=== PATIENT | male | born 1985 | race Caucasian/White ===

== ENCOUNTER 2017-10-12 11:10 | Emergency (ER) | payer MEDICAID, OTHER ==
[2017-10-12 11:17] VITALS: BP 139/86; TEMP 97.2; BMI 36.3
--- NOTE | 2017-10-12 11:38 | ED.PDOC ---
General ED Provider: Dr. LILIA TEJADA-ER Chief Complaint: Tooth Problem Stated Complaint: my tooth hurts Time Seen by Physician: 11:36 Mode of Arrival: Walk-In Information Source: Patient Exam Limitations: No limitations Primary Care Provider: WILMAR ENGLISH Nursing and Triage Documentation Reviewed and Agree: Yes Does patient meet sepsis criteria?: No System Inflammatory Response Syndrome: Not Applicable Sepsis Protocol: For patient's 13 years and over: Temp is 96.8 and below OR 101 and greater Pulse >90 BPM Resp >20/minute Acutely Altered Mental Status Are patient's symptoms suggestive of a new infection, such as: -Pneumonia -Skin, Soft Tissue -Endocarditis -UTI -Bone, Joint Infection -Implantable Device -Acute Abdominal Infection -Wound Infection -Meningitis -Blood Stream Catheter Infection -Unknown EENT Complaint Exam - Dental/Oral Complaint/Exam Mechanism of Injury: No known trauma Onset/Duration: 3 days Symptoms Are: Still present Timing: Constant Initial Severity: Mild Current Severity: Moderate Location: right premolar upper Character: Reports: Dull, Aching, Throbbing Aggravating: Reports: Heat, Cold, Chewing Alleviating: Reports: None Associated Signs and Symptoms: Reports: Swelling Cervical Lymphadenopathy Present: No Facial Swelling Present: No Bleeding Present: No Oropharynx Findings: Absent: Clots, Active bleeding Septal Hematoma: No Foreign Body Present: No Dysphagia Present: No Drooling Present: No Asymmetrical Tonsillar Swelling Present: No Uvula Midline: Yes Nilsa-tonsillar Fluctuence: No Trismus Present: No Palatal Petechiae Present: No Scarlatinaform Rash Present: No Differential Diagnoses: Dental Abcess, Dental Caries Review of Systems - Review Of Systems Constitutional: Reports: No symptoms Eyes: Reports: No symptoms Ears, Nose, Mouth, Throat: Reports: Mouth pain Respiratory: Reports: No symptoms Cardiac: Reports: No symptoms GI: Reports: No symptoms : Reports: No symptoms Musculoskeletal: Reports: No symptoms Skin: Reports: No symptoms Neurological: Reports: No symptoms Endocrine: Reports: No symptoms Hematologic/Lymphatic: Reports: No symptoms All Other Systems: Reviewed and Negative Past Medical History - Past Medical History Previously Healthy: Yes Endocrine: Reports: None Cardiovascular: Reports: None Respiratory: Reports: None Hematological: Reports: None Gastrointestinal: Reports: None Genitourinary: Reports: None Neuro/Psych: Reports: None Musculoskeletal: Reports: None Cancer: Reports: None - Surgical History General Surgical History: Reports: None - Family History Family History: Reports: None - Social History Smoking Status: Never smoker Hx Substance Use: No Alcohol Screening: Occasionally - Immunizations Tetanus Shot up to Date: No Physical Exam - Physical Exam Appearance: Well-appearing, No pain distress, Well-nourished Pain Distress: Mild Eyes: MILENA, EOMI, Conjunctiva clear ENT: Ears normal, Nose normal, Oropharynx normal (noted tenderness to right upper premolar) Neck: Supple Respiratory: Airway patent, Breath sounds clear, Breath sounds equal, Respirations nonlabored Cardiovascular: RRR, Pulses normal, No rub, No murmur GI/: Soft, Nontender, No masses, Bowel sounds normal, No Organomegaly Musculoskeletal: Normal strength, ROM intact, No edema, No calf tenderness Skin: Warm, Dry, Normal color Neurological: Sensation intact, Motor intact, Reflexes intact, Cranial nerves intact, Alert, Oriented Psychiatric: Affect appropriate, Mood appropriate Critical Care Note - Critical Care Note Total Time (mins): 0 Course - Course Vital Signs: Temp Pulse Resp BP Pulse Ox 10/12/17 11:12 97.2 F L 81 16 139/86 98 Departure - Departure Time of Disposition: 11:38 Disposition: HOME SELF-CARE Discharge Problem: Toothache Instructions: Toothache (ED) Condition: Good Pt referred to PMD for follow-up: No IPMP verified?: No Additional Instructions: clindamycin liquid 150mg tid x 7 days--liquid lortab 5mg q 4hrs prn pain 50cc nr --f/u with dentist ace Allergies/Adverse Reactions: Allergies chlorpheniramine [From Triaminic Cold & Cough] Adverse Reaction (Verified 11:20) dextromethorphan [From Triaminic Cold & Cough] Adverse Reaction (Verified 11:20) Penicillins Adverse Reaction (Verified 10/12/17 11:20) pseudoephedrine [From Triaminic Cold & Cough] Adverse Reaction (Verified 11:20) Home Medications: Ambulatory Orders 1 [No Reported Medications] 10/12/17 Disposition Discussed With: Patient, Family
== END 2017-10-12 11:59 | disposition home or self-care (01) ==
LOC: ED 11:10
DX: K08.89 Other specified disorders of teeth and supporting structures (principal)
CPT/HCPCS: 99282

== ENCOUNTER 2017-10-20 13:04 | Emergency (ER) ==
[2017-10-20 13:05] VITALS: BMI 36.3
[2017-10-20 13:11] VITALS: BP 111/84; TEMP 98.5
--- NOTE | 2017-10-20 13:27 | ED.PDOC ---
General ED Provider: Dr. KUSUM RAMIREZ Chief Complaint: Tooth Problem Stated Complaint: DENTAL PAIN Time Seen by Physician: 13:12 Mode of Arrival: Walk-In Information Source: Patient Exam Limitations: No limitations Primary Care Provider: WILMAR ENGLISH Nursing and Triage Documentation Reviewed and Agree: Yes Does patient meet sepsis criteria?: No If yes, has appropriate treatment been initiated?: No System Inflammatory Response Syndrome: Not Applicable Sepsis Protocol: For patient's 13 years and over: Temp is 96.8 and below OR 101 and greater Pulse >90 BPM Resp >20/minute Acutely Altered Mental Status Are patient's symptoms suggestive of a new infection, such as: -Pneumonia -Skin, Soft Tissue -Endocarditis -UTI -Bone, Joint Infection -Implantable Device -Acute Abdominal Infection -Wound Infection -Meningitis -Blood Stream Catheter Infection -Unknown EENT Complaint Exam - Dental/Oral Complaint/Exam Mechanism of Injury: No known trauma Onset/Duration: 2 DAYS Symptoms Are: Still present Timing: Constant Initial Severity: Moderate Current Severity: Moderate Character: Reports: Aching Aggravating: Reports: Cold, Chewing Alleviating: Reports: Cold Associated Signs and Symptoms: Denies: Swelling, Discharge, Fever, Foul odor, Foul taste in mouth Related History: Reports: Similar episode Cardiac Risk Factors: Reports: None Dental/Oral Surgical History: Reports: None Tooth Findings: Present: Gross decay, Gross caries Cervical Lymphadenopathy Present: No Facial Swelling Present: No Bleeding Present: No Oropharynx Findings: Absent: Clots, Active bleeding Septal Hematoma: No Foreign Body Present: No Dysphagia Present: No Drooling Present: No Asymmetrical Tonsillar Swelling Present: No Uvula Midline: Yes Nilsa-tonsillar Fluctuence: No Trismus Present: No Palatal Petechiae Present: No Scarlatinaform Rash Present: No Lesions: Absent: Lip, Gums, Tongue, Buccal Mucosa, Pharynx Exanthem: Absent: Lip, Gums, Tongue, Buccal Mucosa, Pharynx Vesicles: Absent: Lip, Gums, Tongue, Buccal Mucosa, Pharynx Differential Diagnoses: Dental Caries Review of Systems - Review Of Systems Constitutional: Reports: No symptoms Eyes: Reports: No symptoms Ears, Nose, Mouth, Throat: Reports: No symptoms Respiratory: Reports: No symptoms Cardiac: Reports: No symptoms GI: Reports: No symptoms : Reports: No symptoms Musculoskeletal: Reports: No symptoms Skin: Reports: No symptoms Neurological: Reports: No symptoms Endocrine: Reports: No symptoms Hematologic/Lymphatic: Reports: No symptoms All Other Systems: Reviewed and Negative Past Medical History - Past Medical History Previously Healthy: Yes Endocrine: Reports: None Cardiovascular: Reports: None Respiratory: Reports: None Hematological: Reports: None Gastrointestinal: Reports: None Genitourinary: Reports: None Neuro/Psych: Reports: None Musculoskeletal: Reports: None Cancer: Reports: None - Surgical History General Surgical History: Reports: None - Family History Family History: Reports: None - Social History Smoking Status: Never smoker Hx Substance Use: No Alcohol Screening: Occasionally Physical Exam - Physical Exam Appearance: Well-appearing, No pain distress, Well-nourished Eyes: MILENA, EOMI, Conjunctiva clear ENT: Ears normal, Nose normal, Oropharynx normal Respiratory: Airway patent, Breath sounds clear, Breath sounds equal, Respirations nonlabored Cardiovascular: RRR, Pulses normal, No rub, No murmur GI/: Soft, Nontender, No masses, Bowel sounds normal, No Organomegaly Musculoskeletal: Normal strength, ROM intact, No edema, No calf tenderness Skin: Warm, Dry, Normal color Neurological: Sensation intact, Motor intact, Reflexes intact, Cranial nerves intact, Alert, Oriented Psychiatric: Affect appropriate, Mood appropriate Critical Care Note - Critical Care Note Total Time (mins): 0 Course - Course Vital Signs: Temp Pulse Resp BP Pulse Ox 10/20/17 13:07 98.5 F 108 H 20 111/84 98 Departure - Departure Time of Disposition: 13:27 Disposition: HOME SELF-CARE Discharge Problem: Toothache Instructions: Toothache (ED) Condition: Good Pt referred to PMD for follow-up: Yes IPMP verified?: No Additional Instructions: Please call your Family Physician as soon as possible to schedule a follow-up appointment. Prescriptions: Amoxicillin 500 mg PO Q8HR #21 tablet Hydrocodone/Acetaminophen [[place] 10-325 Tablet] 1 each PO Q8HR #10 tablet Allergies/Adverse Reactions: Allergies chlorpheniramine [From Triaminic Cold & Cough] Adverse Reaction (Verified 11:20) dextromethorphan [From Triaminic Cold & Cough] Adverse Reaction (Verified 11:20) pseudoephedrine [From Triaminic Cold & Cough] Adverse Reaction (Verified 11:20) Home Medications: Ambulatory Orders Amoxicillin 500 mg PO Q8HR #21 tablet 10/20/17 Hydrocodone/Acetaminophen [[place] 10-325 Tablet] 1 each PO Q8HR #10 tablet
== END 2017-10-20 13:33 | disposition home or self-care (01) ==
LOC: ED 13:04
DX: K08.89 Other specified disorders of teeth and supporting structures (principal); K02.7 Dental root caries
CPT/HCPCS: 99282

== ENCOUNTER 2017-11-11 19:33 | Emergency (ER) ==
[2017-11-11 19:41] VITALS: BP 144/84; TEMP 98.9; BMI 36.0
[2017-11-11] MEDS ORDERED: ASPIRIN EC PO STA (19:57)
[2017-11-11] MEDS ORDERED: ASPIRIN CHEWABLE PO STA (20:14)
--- NOTE | 2017-11-11 20:19 | ED.PDOC ---
General ED Provider: Dr. LIZETH ASIF Chief Complaint: Chest Pain Stated Complaint: Came for the mid sternal chest pain, shortness of breath. started with SOB after dental extraction, also has left side abdominla pain. Time Seen by Physician: 20:15 Mode of Arrival: Walk-In Information Source: Patient, Family Primary Care Provider: WILMAR ENGLISH Nursing and Triage Documentation Reviewed and Agree: Yes Does patient meet sepsis criteria?: No If yes, has appropriate treatment been initiated?: No System Inflammatory Response Syndrome: Not Applicable Sepsis Protocol: For patient's 13 years and over: Temp is 96.8 and below OR 101 and greater Pulse >90 BPM Resp >20/minute Acutely Altered Mental Status Are patient's symptoms suggestive of a new infection, such as: -Pneumonia -Skin, Soft Tissue -Endocarditis -UTI -Bone, Joint Infection -Implantable Device -Acute Abdominal Infection -Wound Infection -Meningitis -Blood Stream Catheter Infection -Unknown Cardiovascular Complaint Exam - Chest Pain Complaint/Exam Onset: Gradual Symptoms Are: Still present Timing: Constant Initial Severity: Mild Current Severity: Mild Location: Reports: Midsternal Pain Radiates: Reports: Left shoulder, Right shoulder Character: Reports: Dull, Aching, Tightness Aggravating: Reports: Exertion, Movement Alleviating: Reports: None Associated Signs and Symptoms: Reports: Abdominal pain, Short of air. Denies: Diaphoresis, Nausea, Vomiting, Fever, Palpitations, Cough, Hemoptysis, Back pain , Dizziness, Calf pain, Calf swelling Related History: Reports: Similar episode Related Surgical History: Reports: None History of Healthcare-Acquired Pneumonia: Reports: No AMI/ACS Risk Factors: Reports: None TAD Risk Factors: Reports: None Pulmonary Embolism Risk Factors: Reports: None Prior Care for this Complaint: No Recent Stress Test: No Recent Echo/LV Function: No JVD Present: No Subcutaneous Emphysema Present: No Diminshed Breath Sounds: No Bilateral Pulses Present: No Unequal Pulses Noted: No If Risk Factors for AMI/ACS Consider: EKG, Cardiac Enzymes Review of Systems - Review Of Systems Constitutional: Reports: No symptoms Eyes: Reports: No symptoms Ears, Nose, Mouth, Throat: Reports: No symptoms Respiratory: Reports: No symptoms Cardiac: Reports: Chest pain GI: Reports: Abdomen distended, Abdominal pain : Reports: No symptoms Musculoskeletal: Reports: No symptoms Skin: Reports: No symptoms Neurological: Reports: No symptoms Endocrine: Reports: No symptoms Hematologic/Lymphatic: Reports: No symptoms All Other Systems: Reviewed and Negative Past Medical History - Past Medical History Previously Healthy: Yes Endocrine: Reports: None Cardiovascular: Reports: None Respiratory: Reports: None Hematological: Reports: None Gastrointestinal: Reports: None Genitourinary: Reports: None Neuro/Psych: Reports: None Musculoskeletal: Reports: None Cancer: Reports: None - Surgical History General Surgical History: Reports: None - Family History Family History: Reports: None - Social History Smoking Status: Never smoker Hx Substance Use: No Alcohol Screening: None - Immunizations Tetanus Shot up to Date: (unknown) Physical Exam - Physical Exam Appearance: Well-appearing, No pain distress, Well-nourished Eyes: MILENA, EOMI, Conjunctiva clear ENT: Ears normal, Nose normal, Oropharynx normal Respiratory: Airway patent, Breath sounds clear, Breath sounds equal, Respirations nonlabored Cardiovascular: RRR, Pulses normal, No rub, No murmur GI/: Soft, Nontender, No masses, Bowel sounds normal, No Organomegaly Musculoskeletal: Normal strength, ROM intact, No edema, No calf tenderness Skin: Warm, Dry, Normal color Neurological: Sensation intact, Motor intact, Reflexes intact, Cranial nerves intact, Alert, Oriented Psychiatric: Affect appropriate, Mood appropriate Interpretation - Radiology Interpretation Radiology Interpretation By: Radiologist Radiology Results: Negative Exam Interpreted: CT Scan Critical Care Note - Critical Care Note Total Time (mins): 30 Course - Course Hematology/Chemistry: 11/11/17 18:15 11/11/17 18:15 Orders, Labs, Meds: Lab Review 11/11/17 11/11/17 18:15 18:15 WBC 10.28 H RBC 5.50 Hgb 16.3 Hct 46.1 MCV 83.8 MCH 29.6 MCHC 35.4 RDW Coeff of Rehana 11.6 Plt Count 241 Immature Gran % (Auto) 0.2 Neut % (Auto) 58.8 Lymph % (Auto) 27.5 Nolan % (Auto) 7.9 Eos % (Auto) 4.6 Baso % (Auto) 1.0 Immature Gran # (Auto) 0.0 Neut # (Auto) 6.1 Lymph # (Auto) 2.8 Nolan # (Auto) 0.8 Eos # (Auto) 0.5 Baso # (Auto) 0.1 Sodium 140 Potassium 4.0 Chloride 105 Carbon Dioxide 27 Anion Gap 12.0 BUN 15 Creatinine 1.09 Estimated GFR (MDRD) 79.00 BUN/Creatinine Ratio 13.76 Glucose 94 Calcium 9.8 Total Bilirubin 0.9 AST 21 ALT 26 Alkaline Phosphatase 72 Total Creatine Kinase 168 CK-MB (CK-2) 0.7 CK-MB (CK-2) % 0.82320 Troponin I < 0.0100 Total Protein 8.2 Albumin 3.9 Globulin 4.3 Albumin/Globulin Ratio 0.91 Orders Category Date Time Status EKG-(ED ONLY) Stat CARDIO 11/11/17 19:57 Completed CBC W/ AUTO DIFF Stat LAB 11/11/17 18:15 Completed COMPREHENSIVE METABOLIC PANEL Stat LAB 11/11/17 18:15 Completed CREATINE KINASE Stat LAB 11/11/17 18:15 Completed TROPONIN I Stat LAB 11/11/17 18:15 Completed Aspirin [Aspirin Chewable] MEDS 11/11/17 20:14 Discontinued 324 mg PO ONCE STA Magnesium Citrate [Citrate of Magnesia] MEDS 11/11/17 21:33 Stat 10 oz PO ONCE STA CT ABDOMEN/PELVIS WO CONTRAST Stat RADS 11/11/17 19:[address] CHEST W/O CONTRAST Stat RADS 11/11/17 19:57 Completed Medications Discontinued Medications Generic Name Dose Route Start Last Admin Trade Name Freq PRN Reason Stop Dose Admin Aspirin 324 mg 11/11/17 20:14 11/11/17 20:20 Aspirin Chewable PO 11/11/17 20:15 324 mg ONCE STA Administration Vital Signs: Temp Pulse Resp BP Pulse Ox 11/11/17 19:34 98.9 F 86 20 144/84 H 95 MASSIEL Risk Score MASSIEL Risk Score: Risk Score Odds of by 30D 0 0.1 (0.1-0.2) 1 0.3 (0.2-0.3) 2 0.4 (0.3-0.5) 3 0.7 (0.6-0.9) 4 1.2 (1.0-1.5) 5 2.2 (1.9-2.6) 6 3.0 (2.5-3.6) 7 4.8 (3.8-6.1) Departure - Departure Time of Disposition: 21:34 Disposition: HOME SELF-CARE Discharge Problem: Chest pain Constipation Qualifiers: Constipation type: other constipation type Qualified Code(s): K59.09 - Other constipation Instructions: Constipation (ED) Condition: Stable Pt referred to PMD for follow-up: Yes IPMP verified?: No Additional Instructions: INCREASE HYDRATION INCREASE FIBRE DIET MIRALAX F/U WITH pmd Prescriptions: Polyethylene Glycol 3350 [Gavilax] 510 gm PO DAILY #1 powder Allergies/Adverse Reactions: Allergies chlorpheniramine [From Triaminic Cold & Cough] Adverse Reaction (Verified 11:20) dextromethorphan [From Triaminic Cold & Cough] Adverse Reaction (Verified 11:20) pseudoephedrine [From Triaminic Cold & Cough] Adverse Reaction (Verified 11:20) Home Medications: Ambulatory Orders Acetaminophen 30 ml PO Q6HR PRN 11/11/17 Calcium Carbonate [Tums] 300 mg PO DIRECTED PRN 11/11/17 Polyethylene Glycol 3350 [Gavilax] 510 gm PO DAILY #1 powder 11/11/17 Disposition Discussed With: Patient, Family
--- NOTE | 2017-11-11 20:35 | CT ---
EXAM: CT chest without contrast TECHNIQUE: Helical axial CT of the chest was performed without contrast with coronal and sagittal rec onstructions. COMPARISON: CT abdomen pelvis from same day HISTORY: Epigastric pain FINDINGS: Lung parenchyma: There is no mass or nodule or large effusion or infiltrate. Mediastinum: No pathologic hilar or mediastinal adenopathy. No significant coronary calcifications. T here is no pericardial effusion. No significant aortic or great vessel calcification. There is no aor tic aneurysm or dissection. Upper Abdomen: No focal or acute abnormality. Osseous structures: Nothing acute. There is kyphosis and prior extensive thoracolumbar fusion. Surrounding soft tissues including the thyroid gland are normal. No supraclavicular or axillary adeno prachi. IMPRESSION: 1. No acute abnormality in the chest.
--- NOTE | 2017-11-11 20:36 | CT ---
EXAM: CT abdomen pelvis without contrast TECHNIQUE: Helical axial CT of the abdomen and pelvis was performed without contrast with coronal an d sagittal reconstructions. COMPARISON: CT of the chest from same day HISTORY: Epigastric pain FINDINGS: There is no acute abnormality. Specifically there is no mesenteric inflammation, free air, free fluid or bowel wall thickening or edema or pathologic lymph nodes or obstruction or ileus. There is a larg e amount of gastric contents. There is extensive inspissated fecal material within the large bowel. The liver, spleen, pancreas,and adrenal glands show no acute abnormality. Lung bases are well-aerate d. There is no hiatal hernia. The gallbladder is normal with no stones or inflammation. There is no biliary or pancreatic ductal dilatation. There are no suspicious renal masses or large cysts and no hydronephrosis. There are no kidney stones . Both ureters demonstrate normal course and caliber. There is no filling defect in the urinary blad ada. The appendix is not definitely seen. There are no inflamed colonic diverticula. There are no abdomin al wall hernias. The aorta is normal with no aneurysm or calcific atherosclerosis. There are no acute osseous abnormalities. There has been extensive thoracolumbar fusion. IMPRESSION: 1. No acute abnormality in the abdomen or pelvis. 2. Large amount of gastric contents as well as constipation. 3. Other findings as above.
[2017-11-11] MEDS ORDERED: CITRATE OF MAGNESIA PO STA (21:33)
== END 2017-11-11 22:18 | disposition home or self-care (01) ==
LOC: ED 19:33
DX: R07.9 Chest pain, unspecified (principal); K59.09 Other constipation; R06.02 Shortness of breath; Z98.890 Other specified postprocedural states
CPT/HCPCS: 36415; 80053; 82550; 82553; 84484; 85025; 93005; 93010; 99283

== ENCOUNTER 2017-12-10 21:59 | Emergency (ER) ==
[2017-12-10 22:11] VITALS: BP 129/80; TEMP 98.2; BMI 34.6
[2017-12-10] MEDS ORDERED: DECADRON 4 MG/ML SDV IM STA (22:20)
[2017-12-10] MEDS ORDERED: XOPENEX 1.25 MG NEB STA (22:20)
--- NOTE | 2017-12-10 22:56 | DI ---
EXAM: Chest, two views, 12/10/2017 HISTORY: Dyspnea COMPARISON: 11/11/2017 FINDINGS / IMPRESSION: Cardiomediastinal contours appear within normal limits. Hardware is present within the thoracic spine The lungs appear well aerated. There is no focal pulmonary consolidation. No pleural effusion or pn eumothorax.
--- NOTE | 2017-12-10 23:52 | ED.PDOC ---
General ED Provider: Dr. LILIA TEJADA-ER Chief Complaint: Shortness of Air Stated Complaint: my asthma is acting up Time Seen by Physician: 21:55 Mode of Arrival: Walk-In Information Source: Patient, Family Exam Limitations: No limitations Primary Care Provider: WILMAR ENGLISH Nursing and Triage Documentation Reviewed and Agree: Yes Does patient meet sepsis criteria?: No System Inflammatory Response Syndrome: Not Applicable Sepsis Protocol: For patient's 13 years and over: Temp is 96.8 and below OR 101 and greater Pulse >90 BPM Resp >20/minute Acutely Altered Mental Status Are patient's symptoms suggestive of a new infection, such as: -Pneumonia -Skin, Soft Tissue -Endocarditis -UTI -Bone, Joint Infection -Implantable Device -Acute Abdominal Infection -Wound Infection -Meningitis -Blood Stream Catheter Infection -Unknown Respiratory Complaint Exam - Asthma Complaint/Exam Onset/Duration: 2 days Symptoms Are: Still present Timing: Constant Initial Severity: Mild Current Severity: Moderate Character: Reports: Wheezing, Non-productive cough Aggravating: Reports: None Alleviating: Reports: Inhalers, Nebulizers Associated Signs and Symptoms: Reports: SOA. Denies: Fever, Chest pain, Edema, Calf pain, URI, Sinus infection, Rapid breathing, Labored breathing Related History: Reports: Similar episode Current Asthma Medication Usage: Yes Recent Antibiotics: No Respiratory Distress: None Accessory Muscle Use: No Diminished Breath Sounds: Yes Prolonged Expiratory Phase: No Unable to Speak Full Sentences: No Fatigue Present: No Differential Diagnoses: Acute Asthma Review of Systems - Review Of Systems Constitutional: Reports: No symptoms Eyes: Reports: No symptoms Ears, Nose, Mouth, Throat: Reports: No symptoms Respiratory: Reports: Cough, Short of air, Wheezing Cardiac: Reports: No symptoms GI: Reports: No symptoms : Reports: No symptoms Musculoskeletal: Reports: No symptoms Skin: Reports: No symptoms Neurological: Reports: No symptoms Endocrine: Reports: No symptoms Hematologic/Lymphatic: Reports: No symptoms All Other Systems: Reviewed and Negative Past Medical History - Past Medical History Previously Healthy: Yes Endocrine: Reports: None Cardiovascular: Reports: None Respiratory: Reports: None Hematological: Reports: None Gastrointestinal: Reports: None Genitourinary: Reports: None Neuro/Psych: Reports: None Musculoskeletal: Reports: None Cancer: Reports: None - Surgical History General Surgical History: Reports: None - Family History Family History: Reports: None - Social History Smoking Status: Never smoker Hx Substance Use: No Alcohol Screening: Occasionally - Immunizations Tetanus Shot up to Date: (UNKNOWN) Physical Exam - Physical Exam Appearance: Well-appearing, No pain distress, Well-nourished Eyes: MILENA, EOMI, Conjunctiva clear ENT: Ears normal, Nose normal, Oropharynx normal Neck: Supple Respiratory: Wheezes Cardiovascular: RRR, Pulses normal, No rub, No murmur GI/: Soft, Nontender, No masses, Bowel sounds normal, No Organomegaly Musculoskeletal: Normal strength Skin: Warm, Dry, Normal color Neurological: Sensation intact, Motor intact, Reflexes intact, Cranial nerves intact, Alert, Oriented Psychiatric: Affect appropriate, Mood appropriate Interpretation - Radiology Interpretation Radiology Interpretation By: ED Physician Radiology Results: Negative Exam Interpreted: CXR - EKG Interpretation Time of EKG #1: 23:52 Rate: Normal Rhythm: Sinus Ectopy: None [place]: NL ST Segment: Normal Interpretation: nsr Re-Evaluation - Re-Evaluation Time of Re-Evaluation: 23:52 Status: Improved Vital Signs Stable: Yes Pain Level: 0 Appearance: NAD Lungs: Clear Skin: Warm and Dry Neuro: Alert and Oriented X3 CV: RRR Critical Care Note - Critical Care Note Total Time (mins): 0 Course - Course Hematology/Chemistry: 12/10/17 22:29 12/10/17 22:29 Orders, Labs, Meds: Lab Review 12/10/17 12/10/17 12/10/17 22:19 22:29 22:29 WBC 12.32 H RBC 5.06 Hgb 15.4 Hct 42.3 MCV 83.6 MCH 30.4 MCHC 36.4 H RDW Coeff of Rehana 11.9 Plt Count 233 Immature Gran % (Auto) 0.2 Neut % (Auto) 50.7 Lymph % (Auto) 36.0 [place] % (Auto) 9.3 Eos % (Auto) 2.8 Baso % (Auto) 1.0 Immature Gran # (Auto) 0.0 Neut # (Auto) 6.3 Lymph # (Auto) 4.4 H [place] # (Auto) 1.1 Eos # (Auto) 0.3 Baso # (Auto) 0.1 D-Dimer (Manual) Puncture Site Lrad O2 Saturation 99.0 ABG pH 7.503 H* ABG pCO2 25.4 L ABG pO2 107.0 H ABG HCO3 19.9 L ABG Total CO2 21 L ABG Base Excess -3 L Xavier Test + FiO2 % 21.0 Sodium 140.7 Potassium 3.41 L Chloride 107.6 H Carbon Dioxide 23.1 Anion Gap 13.41 BUN 13.7 Creatinine 0.93 Estimated GFR (MDRD) 95.00 BUN/Creatinine Ratio 14.73 Glucose 97.7 Calcium 9.40 Total Bilirubin 0.93 AST 26.6 ALT 29.3 Alkaline Phosphatase 74.3 Total Creatine Kinase 207.3 H CK-MB (CK-2) 0.439 CK-MB (CK-2) % 0.2100 Troponin I < 0.012 Total Protein 8.35 H Albumin 4.45 Globulin 3.90 Albumin/Globulin Ratio 1.14 TSH 3.450 Free T4 12/10/17 12/10/17 22:29 22:29 WBC RBC Hgb Hct MCV MCH MCHC RDW Coeff of Rehana Plt Count Immature Gran % (Auto) Neut % (Auto) Lymph % (Auto) [place] % (Auto) Eos % (Auto) Baso % (Auto) Immature Gran # (Auto) Neut # (Auto) Lymph # (Auto) [place] # (Auto) Eos # (Auto) Baso # (Auto) D-Dimer (Manual) 239.86 Puncture Site O2 Saturation ABG pH ABG pCO2 ABG pO2 ABG HCO3 ABG Total CO2 ABG Base Excess Xavier Test FiO2 % Sodium Potassium Chloride Carbon Dioxide Anion Gap BUN Creatinine Estimated GFR (MDRD) BUN/Creatinine Ratio Glucose Calcium Total Bilirubin AST ALT Alkaline Phosphatase Total Creatine Kinase CK-MB (CK-2) CK-MB (CK-2) % Troponin I Total Protein Albumin Globulin Albumin/Globulin Ratio TSH Free T4 1.66 Orders Category Date Time Status ABG DRAW REQUEST Stat CARDIO 12/10/17 22:19 Completed EKG-(ED ONLY) Stat CARDIO 12/10/17 22:19 Completed NEBULIZER TREATMENT Stat CARDIO 12/10/17 22:20 Completed Prototype Machine Operator [ED CAR RENTAL SALES ASSISTANT APPLIED] .ONCE EMERGENCY 12/10/17 22:18 Active ARTERIAL BLOOD GAS [ABG] Stat LAB 12/10/17 22:19 Completed CBC W/ AUTO DIFF Stat LAB 12/10/17 22:29 Completed COMPREHENSIVE METABOLIC PANEL Stat LAB 12/10/17 22:29 Completed CREATINE KINASE Stat LAB 12/10/17 22:29 Completed D-DIMER Stat LAB 12/10/17 22:29 Completed FREE T4 (FREE THYROXINE) Stat LAB 12/10/17 22:29 Completed TROPONIN I Stat LAB 12/10/17 22:29 Completed TSH [THYROID STIMULATING HORMONE] Stat LAB 12/10/17 22:29 Completed Dexamethasone 4 mg/ml Inj [Decadron 4 mg/ml Sdv] MEDS 12/10/17 22:20 Discontinued 8 mg IM ONCE STA Levalbuterol HCl [Xopenex 1.25 mg] MEDS 12/10/17 22:20 Discontinued 1 vial NEB ONCE STA CXR [CHEST, 2 VIEWS PA & LAT] Stat RADS 12/10/17 22:19 Completed Medications Discontinued Medications Generic Name Dose Route Start Last Admin Trade Name Freq PRN Reason Stop Dose Admin Dexamethasone Sodium Phosphate 8 mg 12/10/17 22:20 12/10/17 22:46 Decadron 4 Mg/Ml Sdv IM 12/10/17 22:21 8 mg ONCE STA Administration Levalbuterol HCl 1 vial 12/10/17 22:20 12/10/17 22:55 Xopenex 1.25 Mg NEB 12/10/17 22:21 1 vial ONCE STA Administration Vital Signs: Temp Pulse Resp BP Pulse Ox 12/10/17 21:59 98.2 F 74 18 129/80 98 Departure - Departure Time of Disposition: 23:53 Disposition: HOME SELF-CARE Discharge Problem: Asthma Qualifiers: Asthma severity: mild Asthma persistence: unspecified Asthma complication type : with acute exacerbation Qualified Code(s): J45.901 - Unspecified asthma with ( acute) exacerbation Instructions: Asthma (ED) Condition: Good Pt referred to PMD for follow-up: Yes IPMP verified?: No Additional Instructions: continue nebs and inhalers--add mdp--f/u with pcp Allergies/Adverse Reactions: Allergies chlorpheniramine [From Triaminic Cold & Cough] Adverse Reaction (Verified 22:08) dextromethorphan [From Triaminic Cold & Cough] Adverse Reaction (Verified 22:08) pseudoephedrine [From Triaminic Cold & Cough] Adverse Reaction (Verified 22:08) Home Medications: Ambulatory Orders Acetaminophen 30 ml PO Q6HR PRN 11/11/17 Albuterol Sulfate 0.083% Neb [Albuterol 0.083% Neb] 1 vial NEB RTQ6H PRN Albuterol Sulfate [Proair Respiclick] 2 inh IH Q4H PRN 12/10/17 Citalopram Hydrobromide [Citalopram HBr] 15 ml PO DAILY 12/10/17 Polyethylene Glycol 3350 [Gavilax] 510 gm PO DAILY PRN 12/10/17 Ranitidine HCl 10 ml PO DAILY PRN 12/10/17 Risperidone 1 ml PO BEDTIME 12/10/17 Disposition Discussed With: Patient, Family
== END 2017-12-10 23:59 | disposition home or self-care (01) ==
LOC: ED 21:59
DX: J45.901 Unspecified asthma with (acute) exacerbation (principal)
CPT/HCPCS: 36415; 80053; 82550; 82553; 82803; 84439; 84443; 84484; 85025; 85379; 93005; 93010; 94640; 96372; 99283

== ENCOUNTER 2018-04-29 00:55 | Emergency (ER) ==
[2018-04-29 01:04] VITALS: BP 154/85; TEMP 99.1; BMI 37.6
--- NOTE | 2018-04-29 01:22 | ED.PDOC ---
General ED Provider: Dr. OLIVIA ROMO Chief Complaint: Psychiatric Complaint Stated Complaint: Patient is a 33 year old male who comes to the ER with suicidal Thoughs of overdosing on his pills for 5 days. Also complains of Random thoughts. states he was seen by his psych doctor at [facility] last month and has been taking his medications as prescribed but states that sometimes it does not work. Time Seen by Physician: 01:20 Mode of Arrival: Walk-In Information Source: Patient Exam Limitations: No limitations Primary Care Provider: WILMAR ENGLISH Nursing and Triage Documentation Reviewed and Agree: Yes Does patient meet sepsis criteria?: No System Inflammatory Response Syndrome: Not Applicable Sepsis Protocol: For patient's 13 years and over: Temp is 96.8 and below OR 101 and greater Pulse >90 BPM Resp >20/minute Acutely Altered Mental Status Are patient's symptoms suggestive of a new infection, such as: -Pneumonia -Skin, Soft Tissue -Endocarditis -UTI -Bone, Joint Infection -Implantable Device -Acute Abdominal Infection -Wound Infection -Meningitis -Blood Stream Catheter Infection -Unknown Psychological Complaint Exam - Psychiatric Complaint/Exam Patient Complains Of: Present: Depression, Suicidal thoughts Onset/Duration: 4 days Symptoms Are: Still present Timing: Constant Initial Severity: Mild Current Severity: Severe Character: Present: Depressed, Anxious, Frustrated Aggravating: Reports: None Associated Signs And Symptoms: Denies: Confused, Hallucinating, Paranoid behavior, Sleep disturbance, Appetite change Related History: Reports: Suicidal thoughts, Suicidal plan. Denies: Homicidal thoughts, Homicidal plan, Homicidal gestures Completed Suicide Risk Factors: None Patient Accompanied By: Family (Father ) Patient In Custody Of Police: No Social Withdrawal Present: No Social Isolation Present: No Prior Suicide Attempt: No Injury From Prior Suicide Attempt: No Related Surgical History: Reports: None Patient Uncooperative For Exam: No Mood: Present: Depressed, Anxious Appearance: Present: Clean Thought Process: Present: Illogical Insight: Present: Poor Memory: Intact Judgement: Impaired Danger To Others: No Patient Medically Stable For: Psych evaluation Differential Diagnoses: Anxiety, Depression, Suicidal Ideation Review of Systems - Review Of Systems Constitutional: Reports: No symptoms Eyes: Reports: No symptoms Ears, Nose, Mouth, Throat: Reports: No symptoms Respiratory: Reports: No symptoms Cardiac: Reports: No symptoms GI: Reports: No symptoms : Reports: No symptoms Musculoskeletal: Reports: Joint pain, Muscle pain Skin: Reports: No symptoms Neurological: Reports: Anxiety, Depressed, Emotional problems Endocrine: Reports: No symptoms Hematologic/Lymphatic: Reports: No symptoms All Other Systems: Reviewed and Negative Past Medical History - Past Medical History Previously Healthy: Yes Endocrine: Reports: None Cardiovascular: Reports: None Respiratory: Reports: None, Asthma Hematological: Reports: None Gastrointestinal: Reports: None Genitourinary: Reports: None Neuro/Psych: Reports: Seizure, Anxiety, Depression, Schizophrenia, Other (OCD) Musculoskeletal: Reports: None Cancer: Reports: None Other Pertinent Past Medical History: DENTAL CARIES, FEBRILE SEIZURES A CHILD. - Surgical History General Surgical History: Reports: Other (back surg, hernia repair as . Adenoid surg) - Family History Family History: Reports: None - Social History Smoking Status: Never smoker Hx Substance Use: No Alcohol Screening: None - Immunizations Tetanus Shot up to Date: No Physical Exam - Physical Exam Appearance: Well-appearing, No pain distress, Well-nourished Eyes: MILENA, EOMI, Conjunctiva clear ENT: Ears normal, Nose normal, Oropharynx normal Respiratory: Airway patent, Breath sounds clear, Breath sounds equal, Respirations nonlabored Cardiovascular: RRR, Pulses normal, No rub, No murmur GI/: Soft, Nontender, No masses, Bowel sounds normal, No Organomegaly Musculoskeletal: Normal strength, ROM intact, No edema, No calf tenderness Skin: Warm, Dry, Normal color Neurological: Sensation intact, Motor intact, Cranial nerves intact, Alert, Oriented Psychiatric: Anxious, Depressed Interpretation - EKG Interpretation Time of EKG #1: 01:30 Rate: Normal Rhythm: Sinus Ectopy: None [place]: NL Interpretation: Prolonged QT Critical Care Note - Critical Care Note Total Time (mins): 0 Course - Course Hematology/Chemistry: 04/29/18 01:30 04/29/18 01:30 Orders, Labs, Meds: Lab Review 04/29/18 04/29/18 04/29/18 01:15 01:15 01:30 WBC 8.45 RBC 5.10 Hgb 15.0 Hct 42.3 MCV 82.9 MCH 29.4 MCHC 35.5 H RDW Coeff of Rehana 11.4 L Plt Count 214 Immature Gran % (Auto) 0.7 Neut % (Auto) 53.0 Lymph % (Auto) 35.1 [place] % (Auto) 9.1 Eos % (Auto) 1.3 Baso % (Auto) 0.8 Immature Gran # (Auto) 0.1 Neut # (Auto) 4.5 Lymph # (Auto) 3.0 [place] # (Auto) 0.8 Eos # (Auto) 0.1 Baso # (Auto) 0.1 Sodium Potassium Chloride Carbon Dioxide Anion Gap BUN Creatinine Estimated GFR (MDRD) BUN/Creatinine Ratio Glucose Calcium Total Bilirubin AST ALT Alkaline Phosphatase Total Protein Albumin Globulin Albumin/Globulin Ratio TSH Urine Color Yellow Urine Clarity Clear Urine pH 6.5 Ur Specific [place] 1.015 Urine Protein Negative Urine Glucose (UA) Negative Urine Ketones 1+ Urine Blood Negative Urine Nitrite Negative Urine Bilirubin Negative Urine Urobilinogen 1.0 Ur Leukocyte Esterase Negative Salicylate Level mg/dL Urine Opiates Screen Negative Ur Oxycodone Screen Negative Urine Methadone Screen Negative Ur Propoxyphene Screen Negative Acetaminophen Ur Barbiturates Screen Negative U Tricyclic Antidepress Negative Ur Phencyclidine Scrn Negative Ur Amphetamine Screen Negative U Methamphetamines Scrn Negative U Benzodiazepines Scrn Negative Urine Cocaine Screen Negative U Cannabinoids Screen Negative Plasma/Serum Alcohol 04/29/18 01:30 WBC RBC Hgb Hct MCV MCH MCHC RDW Coeff of Rehana Plt Count Immature Gran % (Auto) Neut % (Auto) Lymph % (Auto) [place] % (Auto) Eos % (Auto) Baso % (Auto) Immature Gran # (Auto) Neut # (Auto) Lymph # (Auto) [place] # (Auto) Eos # (Auto) Baso # (Auto) Sodium 140.3 Potassium 3.45 L Chloride 103.0 Carbon Dioxide 26.1 Anion Gap 14.65 BUN 11.0 Creatinine 0.92 Estimated GFR (MDRD) 95.00 BUN/Creatinine Ratio 11.95 Glucose 109.0 H Calcium 9.18 Total Bilirubin 0.74 AST 34.9 ALT 22.2 Alkaline Phosphatase 79.5 Total Protein 8.38 H Albumin 4.48 Globulin 3.90 Albumin/Globulin Ratio 1.14 TSH 2.130 Urine Color Urine Clarity Urine pH Ur Specific [place] Urine Protein Urine Glucose (UA) Urine Ketones Urine Blood Urine Nitrite Urine Bilirubin Urine Urobilinogen Ur Leukocyte Esterase Salicylate Level mg/dL < 1.00 Urine Opiates Screen Ur Oxycodone Screen Urine Methadone Screen Ur Propoxyphene Screen Acetaminophen < 10.0 L Ur Barbiturates Screen U Tricyclic Antidepress Ur Phencyclidine Scrn Ur Amphetamine Screen U Methamphetamines Scrn U Benzodiazepines Scrn Urine Cocaine Screen U Cannabinoids Screen Plasma/Serum Alcohol < 10.0 Orders Category Date Time Status EKG-(ED ONLY) Stat CARDIO 04/29/18 01:21 Completed ED DISPATCH COORDINATOR APPLIED ONCE EMERGENCY 04/29/18 01:21 Active ACETAMINOPHEN Stat LAB 04/29/18 01:30 Completed BLOOD ALCOHOL Stat LAB 04/29/18 01:30 Completed CBC W/ AUTO DIFF Stat LAB 04/29/18 01:30 Completed COMPREHENSIVE METABOLIC PANEL Stat LAB 04/29/18 01:30 Completed DRUG SCREEN, URINE, RAPID Stat LAB 04/29/18 01:15 Completed SALICYLATE Stat LAB 04/29/18 01:30 Completed THYROID STIMULATING HORMONE Stat LAB 04/29/18 01:30 Completed URINALYSIS C & S IF INDICATED Stat LAB 04/29/18 01:15 Completed Vital Signs: Temp Pulse Resp BP Pulse Ox 04/29/18 00:56 99.1 F 95 H 20 154/85 H 98 Departure - Departure Time of Disposition: 07:00 Disposition: TSF TO PSYCH HOSP/UNIT Discharge Problem: Suicidal ideation Condition: Fair Pt referred to PMD for follow-up: No IPMP verified?: No Allergies/Adverse Reactions: Allergies chlorpheniramine [From Triaminic Cold & Cough] Adverse Reaction (Verified 01:04) dextromethorphan [From Triaminic Cold & Cough] Adverse Reaction (Verified 01:04) pseudoephedrine [From Triaminic Cold & Cough] Adverse Reaction (Verified 01:04) Home Medications: Ambulatory Orders Acetaminophen 30 ml PO Q6HR PRN 11/11/17 Albuterol Sulfate 0.083% Neb [Albuterol 0.083% Neb] 1 vial NEB RTQ6H PRN Albuterol Sulfate [Proair Respiclick] 2 inh IH Q4H PRN 12/10/17 Citalopram Hydrobromide [Citalopram HBr] 15 ml PO DAILY 12/10/17 Polyethylene Glycol 3350 [Gavilax] 510 gm PO DAILY PRN 12/10/17 Ranitidine HCl 10 ml PO DAILY PRN 12/10/17 Risperidone 1 ml PO BEDTIME 12/10/17 Disposition Discussed With: Patient, Family
== END 2018-04-29 07:30 ==
LOC: ED 00:55
DX: R45.851 Suicidal ideations (principal); Z79.899 Other long term (current) drug therapy
CPT/HCPCS: 36415; 80053; 80306; 80307; 81001; 84443; 85025; 93005; 93010; 99285

== ENCOUNTER 2018-04-29 07:34 | Outpatient (CLI) ==
[2018-04-29 01:04] VITALS: BMI 37.6
== END 2018-04-29 08:33 ==
LOC: AMBL 07:34
PROVIDERS: ATTEND Emergency Medicine
DX: R45.851 Suicidal ideations (principal)

== ENCOUNTER 2018-08-30 16:09 | Emergency (ER) ==
[2018-08-30 16:12] VITALS: BP 123/82; TEMP 98.6; BMI 38.2
--- NOTE | 2018-08-30 16:21 | ED.PDOC ---
General ED Provider: Dr. LILIA TEJADA-ER Chief Complaint: Sore Throat Stated Complaint: my throat is sore and swollen Time Seen by Physician: 16:19 Mode of Arrival: Walk-In Information Source: Patient, Family Exam Limitations: No limitations Primary Care Provider: WILMAR ENGLISH Nursing and Triage Documentation Reviewed and Agree: Yes Does patient meet sepsis criteria?: No System Inflammatory Response Syndrome: Not Applicable Sepsis Protocol: For patient's 13 years and over: Temp is 96.8 and below OR 101 and greater Pulse >90 BPM Resp >20/minute Acutely Altered Mental Status Are patient's symptoms suggestive of a new infection, such as: -Pneumonia -Skin, Soft Tissue -Endocarditis -UTI -Bone, Joint Infection -Implantable Device -Acute Abdominal Infection -Wound Infection -Meningitis -Blood Stream Catheter Infection -Unknown EENT Complaint Exam - Throat Complaint/Exam Onset/Duration: 2 days Symptoms Are: Still present Timimg: Constant Initial Severity: Mild Current Severity: Mild Aggravating: Reports: Eating Alleviating: Reports: Antipyretics Associated Signs and Symptoms: Reports: Fever Related History: Reports: Similar Episode Uvula Midline: Yes Nilsa-tonsillar Fluctuence: No Scarlatinaform Rash Present: No Exanthem: Present: Pharynx Stridor Present: No Sinus Tenderness Present: No Tonsillar Hypertrophy Present: Yes Tonsillar Exudate Present: Yes Nilsa-tonsillar Swelling Present: No Adenopathy Present: Yes Splenomegaly Present: No Differential Diagnoses: Tonsillitis Review of Systems - Review Of Systems Constitutional: Reports: Chills, Fever Eyes: Reports: No symptoms Ears, Nose, Mouth, Throat: Reports: Throat pain, Throat swelling Respiratory: Reports: No symptoms Cardiac: Reports: No symptoms GI: Reports: No symptoms : Reports: No symptoms Musculoskeletal: Reports: No symptoms Skin: Reports: No symptoms Neurological: Reports: No symptoms Endocrine: Reports: No symptoms Hematologic/Lymphatic: Reports: No symptoms All Other Systems: Reviewed and Negative Past Medical History - Past Medical History Previously Healthy: Yes Endocrine: Reports: None Cardiovascular: Reports: None Respiratory: Reports: None, Asthma Hematological: Reports: None Gastrointestinal: Reports: None Genitourinary: Reports: None Neuro/Psych: Reports: Seizure, Anxiety, Depression, Schizophrenia, Other (OCD) Musculoskeletal: Reports: None Cancer: Reports: None Other Pertinent Past Medical History: DENTAL CARIES, FEBRILE SEIZURES A CHILD. - Surgical History General Surgical History: Reports: Other (back surg, hernia repair as . Adenoid surg) - Family History Family History: Reports: None - Social History Smoking Status: Never smoker Hx Substance Use: No Alcohol Screening: None Physical Exam - Physical Exam Appearance: Well-appearing, No pain distress, Well-nourished Pain Distress: Mild Eyes: MILENA, EOMI, Conjunctiva clear ENT: Erythema, Exudate Neck: Supple Respiratory: Airway patent, Breath sounds clear, Breath sounds equal, Respirations nonlabored Cardiovascular: RRR, Pulses normal, No rub, No murmur GI/: Soft, Nontender, No masses, Bowel sounds normal, No Organomegaly Musculoskeletal: Normal strength, ROM intact, No edema, No calf tenderness Skin: Warm, Dry, Normal color Neurological: Sensation intact Psychiatric: Affect appropriate, Mood appropriate Critical Care Note - Critical Care Note Total Time (mins): 0 Course - Course Orders, Labs, Meds: Orders Category Date Time Status RAPID STREP SCREEN [MOLECULAR GROUP A STREP] Stat LAB 08/30/18 16:18 Uncollected Vital Signs: Temp Pulse Resp BP Pulse Ox 08/30/18 16:09 98.6 F 85 20 123/82 95 Departure - Departure Time of Disposition: 16:20 Disposition: HOME SELF-CARE Discharge Problem: Tonsillitis Instructions: Tonsillitis (ED) Condition: Good Pt referred to PMD for follow-up: Yes IPMP verified?: No Additional Instructions: salt water gargles plus antbx and steroids--f/u with pcp if not improving--- keflex 250/5 1 tsp qid x 7 days---pediapred 5/5 1 tsp bid x 3 days Allergies/Adverse Reactions: Allergies chlorpheniramine [From Triaminic Cold & Cough] Adverse Reaction (Verified 16:13) dextromethorphan [From Triaminic Cold & Cough] Adverse Reaction (Verified 16:13) pseudoephedrine [From Triaminic Cold & Cough] Adverse Reaction (Verified 16:13) Home Medications: Ambulatory Orders Acetaminophen 30 ml PO Q6HR PRN 11/11/17 Albuterol Sulfate 0.083% Neb [Albuterol 0.083% Neb] 1 vial NEB RTQ6H PRN Albuterol Sulfate [Proair Respiclick] 2 inh IH Q4H PRN 12/10/17 Citalopram Hydrobromide [Citalopram HBr] 40 mg PO DAILY 08/30/18 Quetiapine Fumarate [Seroquel] 25 mg PO BEDTIME 08/30/18 Zolpidem Tartrate 5 mg PO BEDTIME 08/30/18 Transfer Form Completed: No Disposition Discussed With: Patient, Family
== END 2018-08-30 16:31 | disposition home or self-care (01) ==
LOC: ED 16:09
DX: J03.90 Acute tonsillitis, unspecified (principal)
CPT/HCPCS: 87651; 99283

== ENCOUNTER 2018-10-13 06:28 | Emergency (ER) ==
[2018-10-13 06:37] VITALS: BP 160/92; TEMP 97.6; BMI 39.8
--- NOTE | 2018-10-13 06:44 | ED.PDOC ---
General ED Provider: Dr. LILIA TEJADA-ER Chief Complaint: Tooth Problem Stated Complaint: my molar hurts and i see dr marcus tomorrow Time Seen by Physician: 06:42 Mode of Arrival: Walk-In Information Source: Patient Exam Limitations: No limitations Primary Care Provider: DEBBIE HARRELL Nursing and Triage Documentation Reviewed and Agree: Yes Does patient meet sepsis criteria?: No System Inflammatory Response Syndrome: Not Applicable Sepsis Protocol: For patient's 13 years and over: Temp is 96.8 and below OR 101 and greater Pulse >90 BPM Resp >20/minute Acutely Altered Mental Status Are patient's symptoms suggestive of a new infection, such as: -Pneumonia -Skin, Soft Tissue -Endocarditis -UTI -Bone, Joint Infection -Implantable Device -Acute Abdominal Infection -Wound Infection -Meningitis -Blood Stream Catheter Infection -Unknown EENT Complaint Exam - Dental/Oral Complaint/Exam Mechanism of Injury: No known trauma Onset/Duration: 2 weeks Symptoms Are: Still present Timing: Constant Initial Severity: Mild Current Severity: Mild Location: right lower molar Character: Reports: Dull, Aching, Throbbing Aggravating: Reports: Heat, Cold, Chewing Associated Signs and Symptoms: Denies: Swelling, Discharge, Fever, Foul odor, Foul taste in mouth Tooth Findings: Present: Percussion tenderness, Gross caries Cervical Lymphadenopathy Present: No Facial Swelling Present: No Bleeding Present: No Oropharynx Findings: Absent: Clots, Active bleeding Septal Hematoma: No Foreign Body Present: No Dysphagia Present: No Drooling Present: No Asymmetrical Tonsillar Swelling Present: No Uvula Midline: Yes Nilsa-tonsillar Fluctuence: No Trismus Present: No Palatal Petechiae Present: No Scarlatinaform Rash Present: No Differential Diagnoses: Dental Caries Review of Systems - Review Of Systems Constitutional: Reports: No symptoms Eyes: Reports: No symptoms Ears, Nose, Mouth, Throat: Reports: Mouth pain Respiratory: Reports: No symptoms Cardiac: Reports: No symptoms GI: Reports: No symptoms : Reports: No symptoms Musculoskeletal: Reports: No symptoms Skin: Reports: No symptoms Neurological: Reports: No symptoms Endocrine: Reports: No symptoms Hematologic/Lymphatic: Reports: No symptoms All Other Systems: Reviewed and Negative Past Medical History - Past Medical History Previously Healthy: Yes Endocrine: Reports: None Cardiovascular: Reports: None Respiratory: Reports: None, Asthma Hematological: Reports: None Gastrointestinal: Reports: None Genitourinary: Reports: None Neuro/Psych: Reports: Seizure, Anxiety, Depression, Schizophrenia, Other (OCD) Musculoskeletal: Reports: None Cancer: Reports: None Other Pertinent Past Medical History: DENTAL CARIES, FEBRILE SEIZURES A CHILD. - Surgical History General Surgical History: Reports: Other (back surg, hernia repair as . Adenoid surg) - Family History Family History: Reports: None - Social History Smoking Status: Never smoker Hx Substance Use: No Alcohol Screening: None - Immunizations Tetanus Shot up to Date: No Physical Exam - Physical Exam Appearance: Well-appearing, No pain distress, Well-nourished Pain Distress: Mild Eyes: MILENA, EOMI, Conjunctiva clear ENT: Ears normal, Nose normal, Oropharynx normal Neck: Supple Respiratory: Airway patent, Breath sounds clear, Breath sounds equal, Respirations nonlabored Cardiovascular: RRR, Pulses normal, No rub, No murmur GI/: Soft, Nontender, No masses, Bowel sounds normal, No Organomegaly Musculoskeletal: Normal strength, ROM intact, No edema, No calf tenderness Skin: Warm, Dry, Normal color Neurological: Sensation intact, Motor intact, Reflexes intact, Cranial nerves intact, Alert, Oriented Psychiatric: Affect appropriate, Mood appropriate Critical Care Note - Critical Care Note Total Time (mins): 0 Course - Course Vital Signs: Temp Pulse Resp BP Pulse Ox 10/13/18 06:29 97.6 F 73 18 160/92 H 98 Departure - Departure Time of Disposition: 06:44 Disposition: HOME SELF-CARE Discharge Problem: Toothache Instructions: Toothache (ED) Condition: Good Pt referred to PMD for follow-up: Yes IPMP verified?: No Additional Instructions: keep appt with your dentist tomorrow Allergies/Adverse Reactions: Allergies chlorpheniramine [From Triaminic Cold & Cough] Adverse Reaction (Verified 06:36) dextromethorphan [From Triaminic Cold & Cough] Adverse Reaction (Verified 06:36) pseudoephedrine [From Triaminic Cold & Cough] Adverse Reaction (Verified 06:36) Home Medications: Ambulatory Orders Acetaminophen 30 ml PO Q6HR PRN 11/11/17 Albuterol Sulfate 0.083% Neb [Albuterol 0.083% Neb] 1 vial NEB RTQ6H PRN Albuterol Sulfate [Proair Respiclick] 2 inh IH Q4H PRN 12/10/17 Trazodone HCl 50 mg PO BEDTIME 10/13/18 Disposition Discussed With: Patient, Family
== END 2018-10-13 06:56 | disposition home or self-care (01) ==
LOC: ED 06:28
DX: K08.89 Other specified disorders of teeth and supporting structures (principal); K02.7 Dental root caries
CPT/HCPCS: 99282